=== PATIENT | male | born 1970 | race Caucasian/White ===

== ENCOUNTER 2016-08-29 21:55 | Emergency (ER) | payer MEDICARE, MEDICAID ==
[~2016-08-29 21:55] MED LIST: Rocuronium 50 MG/5 ML Vial IV ONE
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
== END 2016-08-29 22:28 ==
LOC: MERGE 21:55 → FB.ED 21:55
DX: S09.90XA Unspecified injury of head, initial encounter (principal); S02.91XA Unspecified fracture of skull, initial encounter for closed fracture; V86.99XA Unspecified occupant of other special all-terrain or other off-road motor vehicle injured in nontraffic accident, initial encounter
CPT/HCPCS: 31500; 36415; 51702; 71010; 72170; 80053; 80305; 81001; 82150; 85025; 85610; 85730; 96361; 96374; 99285; G0390; G0480; 51701